=== PATIENT | female | born 1945 | race Caucasian/White ===

== ENCOUNTER 2017-07-06 08:21 | Emergency (ER) | payer BC, MEDICARE ==
[2017-07-06] MEDS ORDERED: Clindamycin 900 MG IVPREMIX(* 900 MG/50 ML SDV IV ONE (08:54)
[2017-07-06] MEDS ORDERED: Clindamycin 600 MG IVPREMIX(* 600 MG/50 ML SDV IV ONE (09:00)
--- NOTE | 2017-07-06 09:22 | ED ---
Skin Complaint - HPI Summary HPI Summary: Pt states she has an infected left hand, in a joint. 3 rd finger PIP. Pt was evaluated by PMD yesterday for same and tole if worse today go to ER for IV antibiotics. She states she punctured her middle just proximal to the PIP with a thorn when she was outside. The finger swelled immediately within 20 minutes. Within less than 12 hours the dorsum of the hand became swollen, slighty red and warm. She was able to see Dr. Yin yesterday who placed her on doxycycline and told her to come to ED for worsening symptoms. She is able to actively extend her fingers, but with 10/10 pain. She feels 10/10 pain over the dorsum of her left hand with worsening pain over the middle MCP joint. She denies pain in the distal tips of the fingers. There is no redness or warmth distal to the PIP joint. - History of Current Complaint Chief Complaint: EDExtremityUpper Time Seen by Provider: 07/06/17 08:36 Stated Complaint: LEFT HAND SWELLING Hx Obtained From: Patient Onset/Duration: Started Days Ago - 2 Timing: Constant Onset Severity: Moderate Current Severity: Severe Pain Intensity: 10 Pain Scale Used: 0-10 Numeric Skin Location: Discrete - dorsum of the left hand Character: Swelling, Pain, Redness Aggravating Symptom(s): Touch Alleviating Symptom(s): Nothing Associated Signs & Symptoms: Negative Related History: Foreign Body - thorn - Allergy/Home Medications Allergies/Adverse Reactions: Allergies Allergy/AdvReac Type Severity Reaction Status Date / Time Acetaminophen Allergy Pain Verified 03/10/15 11:09 Nitrofurantoin Allergy Headache Verified 03/10/15 11:09 [From Macrobid] Penicillins [PCN] Allergy Hives Verified 03/10/15 11:09 PMH/Surg Hx/FS Hx/Imm Hx Previously Healthy: Yes GI History: Reports: Other GI Disorders - ULCERATIVE COLITIS-MINI- FLARE UP CURRENTLY- TRIGGERED BY THE PENICILLIN Musculoskeletal History: Reports: Hx Arthritis - ALL OVER Sensory History: Reports: Hx Cataracts - BILATERAL, Hx Contacts or Glasses - BILATERAL, Hx Hearing Aid - BILATERAL Opthamlomology History: Reports: Hx Cataracts - BILATERAL, Hx Contacts or Glasses - BILATERAL - Surgical History Surgery Procedure, Year, and Place: RIGHT KNEE ARTHROSCOPY X 2. TUBAL LIGATION. HYSTERECTOMY. BILAL CARPAL TUNNEL. BILAT ULNAR NERVE TRANSPOSITION. REMOVAL RIB. TONSILLECTOMY. EYE LID SURGERY. FINGER FUSION- [facility] Hx Anesthesia Reactions: No - Immunization History Date of Tetanus Vaccine: up to date per pt Hx Pertussis Vaccination: No Immunizations Up to Date: Unable to Obtain/Confirm Infectious Disease History: Reports: Hx Hepatitis - HEPATITIS A - 20 YEARS AGO Denies: Traveled Outside the [place] in Last 30 Days - Social History Occupation: Unemployed Lives: With Family Alcohol Use: Rare Hx Substance Use: No Substance Use Type: Reports: None Smoking Status (MU): Never Smoked Tobacco Review of Systems Constitutional: Negative Eyes: Negative Cardiovascular: Negative Respiratory: Negative Positive: no symptoms reported, see HPI Positive: Arthralgia - see HPI Positive: Rash, Other - swelling and erythema over dorsum of the left hand Neurological: Negative All Other Systems Reviewed And Are Negative: Yes Physical Exam Triage Information Reviewed: Yes Vital Signs On Initial Exam: Initial Vitals Temp Pulse Resp BP Pulse Ox 97.2 F 73 16 157/79 100 07/06/17 08:27 07/06/17 08:27 07/06/17 08:27 07/06/17 08:27 07/06/17 08:27 Vital Signs Reviewed: Yes Appearance: Positive: Well-Appearing, Well-Nourished Skin: Positive: Warm, Skin Color Reflects Adequate Perfusion Neck: Positive: Supple, No Lymphadenopathy Respiratory/Lung Sounds: Positive: Clear to Auscultation, Breath Sounds Present Cardiovascular: Positive: Normal, RRR, Pulses are Symmetrical in both Upper and Lower Extremities Musculoskeletal: Positive: Pain @ Diagnostics - Vital Signs Vital Signs Temp Pulse Resp BP Pulse Ox 07/06/17 08:27 97.2 F 73 16 157/79 100 - Laboratory Result Diagrams: 07/06/17 09:10 07/06/17 09:10 Lab Statement: Any lab studies that have been ordered have been reviewed, and results considered in the medical decision making process. Course/Dx - Course Course Of Treatment: Labs and cultures drawn. Concern over possible extensor tenosynovitis, called Dr. Bowie at 10am who comes to see the patient. After assessment, he concludes she should be given Clindamycin 900mg IV and discharged home on Bactrim x 10 days. She should follow up Saturday or Saturday in the clinic and see the hand specialist Dr. Rick. Patient agrees to warm soaks and discharge plan. She denies fevers, sweats or chills. Medications were reveiwed with patient. Encouarged to return to ED for worsening symptoms. Return precautions given. Patient understands and agrees with plan. Ok for discharge. - Differential Diagnoses - Skin Complaint Differential Diagnoses: Other - extensor tenosynovitis, deep space dorsum infection, cellulitis - Diagnoses Provider Diagnoses: Cellulitis of dorsum of hand Discharge - Discharge Plan Condition: Stable Disposition: HOME Prescriptions: Sulfamethox/Trimethoprim DS* [Bactrim DS 800/160 TAB*] 1 tab PO BID #20 tab MDD 2 Patient Education Materials: Cellulitis (ED) Referrals: Daria Yin MD [Primary Care Provider] - Lakia Rick MD [Medical Doctor] - Additional Instructions: Warm soaks twice daily to the hand Call Dr. Rick's office first thing Saturday morning for appt either Saturday or Saturday for recheck If your symptoms become worse, return to the ED immediately. If you develop redness, streaks of red around the wound, swelling, abnormal drainage or you develop a fever - you need to come back to the ED right away. Bactrim twice daily for 10 days Ibuprofen for any discomfort. 600mg three times daily
[2017-07-06 09:31] LABS: Hematocrit 39 % (35-47); Hemoglobin 13.2 g/dl (12.0-16.0); Mean Corpuscular HGB Conc 34 g/dl (31-36); Mean Corpuscular Hemoglobin 33 pg (27-31); Mean Corpuscular Volume 98 fL (80-97); Mean Platelet Volume 10 um3 (7.4-10.4); Red Blood Count 4.02 10^6/ul (4.0-5.4); Red Cell Distribution Width 13 % (10.5-15); White Blood Count 6.2 10^3/ul (3.5-10.8)
[2017-07-06] MEDS ORDERED: Vancomycin(*) 1,500 MG in NS 0.9% 250 ML* 250 ML IVPB ONE (09:36)
[2017-07-06 09:46] LABS: ALT 18 U/L (7-52); AST 17 U/L (13-39); Albumin 4.1 g/dL (3.2-5.2); Alkaline Phosphatase 65 U/L (34-104); Anion Gap 6 mmol/L (2-11); BUN/Creatinine Ratio 16.7 (8-20); Blood Urea Nitrogen 12 mg/dL (6-24); C Reactive Protein < 1.00 mg/L (< 5.00); CO2 Carbon Dioxide 27 mmol/L (22-32); Calcium 9.2 mg/dL (8.6-10.3); Chloride 105 mmol/L (101-111); EGFR African American 102.1 (>60); EGFR Non-African American 79.4 (>60); Globulin 2.6 g/dL (2-4); Glucose 92 mg/dL (70-100); Potassium 3.7 mmol/L (3.5-5.0); Sodium 138 mmol/L (133-145); Total Protein 6.7 g/dL (6.4-8.9)
[2017-07-06 11:20] VITALS: BP 144/69
--- NOTE | 2017-07-06 12:35 | CONS ---
ER CONSULTATION: DATE OF CONSULT: 07/06/17 HISTORY OF PRESENT ILLNESS: Ms. Mcmillan is a healthy 71-year-old, who was gardening and punctured her left third finger plantar aspect between the distal and proximal phalanx with a thorn. This was a f ew days ago, she was started on some doxycycline yesterday by her primary care doctor. She is here today not really better or worse but still with some diffuse pain in the left hand. She denies feve rs or chills. No general malaise and is otherwise in healthy good physical condition. ALLERGIES: She has an allergy to PENICILLIN. PHYSICAL EXAM: [place] is nonseptic, afebrile, no acute distress. There is some slight erythema o n the dorsal aspect of her third MCP and there is no erythema on the palmar aspect, just a mild swel ling of her third digit with a very small puncture wound, which is not draining, nonerythematous, ar ound the palmar aspect of her middle phalanx. She has painless range of motion of the DIP, PIP, and MCP. There is no pain along the flexor tendon proximal to the puncture wound. DIAGNOSTIC STUDIES: Radiograph of the hand is negative. ASSESSMENT AND PLAN: The patient with some cellulitis in the left hand after a puncture wound with a thorn. I do not see evidence for flexor tenosynovitis. Plan will be oral antibiotics with a dose of IV here in the office and then follow up with hand team in 3 days' time. [id number]/[facility] #: [id number]
== END 2017-07-06 11:18 | disposition home or self-care (01) ==
LOC: ED 08:21
DX: L03.114 Cellulitis of left upper limb (principal); R21 Rash and other nonspecific skin eruption
CPT/HCPCS: 36415; 80053; 85025; 86140; 87040; 96365; 99282; J3370